=== PATIENT | male | born 1960 | race Caucasian/White ===

== ENCOUNTER 2020-04-18 06:38 | Day surgery (SDC) | payer BC ==
[~2020-04-18] VITALS: Ht 167.6 cm; Wt 150.0 kg
[~2020-04-18 06:38] MED LIST: Aspirin EC81 MG PO; Bactroban22 GM TOP; EPIN.3I IM; Glucosamine Co1 EAC1 PO; HYDMOR2 PO; METF500 PO; METO50ER PO; NON-ASPIRIN 8650 MG PO; OLME20 PO; PRAVASTATIN SOD10 MG PO; VALSARTAN-HCTZ1 EAC3; VITAMIN D35000 UNI1
== END 2020-04-18 08:40 | disposition home or self-care (01) ==
LOC: ORSCSDS 06:38
PROVIDERS: Surgery
PROC: 0DJD8ZZ Inspection of Lower Intestinal Tract, Via Natural or Artificial Opening Endoscopic (ICD-10-PCS; principal; 2020-04-18 08:00)
DX: Z12.11 Encounter for screening for malignant neoplasm of colon (principal); E11.9 Type 2 diabetes mellitus without complications; E78.5 Hyperlipidemia, unspecified; I10 Essential (primary) hypertension; E55.9 Vitamin D deficiency, unspecified; Z79.82 Long term (current) use of aspirin; Z79.84 Long term (current) use of oral hypoglycemic drugs; Z79.899 Other long term (current) drug therapy
CPT/HCPCS: 82947; J0461; J2405; J2704; J7120

== ENCOUNTER 2021-05-05 06:24 | Day surgery (SDC) | payer BC ==
[~2021-05-05] VITALS: Ht 167.6 cm; Wt 85.8 kg
[~2021-05-05 06:24] MED LIST changes: -VITAMIN D35000 UNI1; +VITAMIN D5000 UNIT PO
[2021-05-05] MEDS ORDERED: METFORMIN HCL500 M2 PO (08:46)
[2021-05-05] MEDS ORDERED: GLIP5 PO (08:46)
[2021-05-05] MEDS ORDERED: IRBESARTAN-HCT1 EAC2 PO (08:46)
[2021-05-05] MEDS ORDERED: ATORVASTATIN CA20 MG PO (08:47)
[2021-05-05] MEDS ORDERED: FOLI1 PO (08:48)
--- NOTE | 2021-05-05 09:18 | NUR ---
05/05/21 0918 Nabila Srinivasan ALCOHOL AND HYDROGEN PEROXIDE WIPES DONE BY SURGEON. 2 CHLORAPREP STICKS USED FOR PREP.
--- NOTE | 2021-05-05 12:28 | NUR ---
05/05/[address] DR[address] PERKINS @ BEDSIDE TO PERFORM R INTERSCALENE BLOCK, PATIENT TOLERATED WELL, WILL CONTINUE TO MONITOR. TIME OUT PERFORMED, PROCEDURAL TIME 12:18-12:24
== END 2021-05-05 13:31 | disposition home or self-care (01) ==
LOC: ORSCSDS 06:24
PROVIDERS: Orthopaedic Surgery
PROC: 0RRJ00Z Replacement of Right Shoulder Joint with Reverse Ball and Socket Synthetic Substitute, Open Approach (ICD-10-PCS; principal; 2021-05-05 08:30)
DX: M19.011 Primary osteoarthritis, right shoulder (principal); M75.121 Complete rotator cuff tear or rupture of right shoulder, not specified as traumatic; E11.9 Type 2 diabetes mellitus without complications; E78.5 Hyperlipidemia, unspecified; I10 Essential (primary) hypertension; Z79.84 Long term (current) use of oral hypoglycemic drugs; Z79.899 Other long term (current) drug therapy
CPT/HCPCS: 73020; 82947; A9270; C1713; C1776; J0171; J0696; J1100; J2001; J2250; J2270; J2405; J2704; J3010; J3370; J7050; J7120

== ENCOUNTER 2022-02-20 06:05 | Day surgery (SDC) | payer BC ==
[~2022-02-20] VITALS: Ht 167.6 cm; Wt 85.2 kg
[~2022-02-20 06:05] MED LIST changes: +ATORVASTATIN CA20 MG PO; +FOLI1 PO; +GLIP5 PO; +IRBESARTAN-HCT1 EAC2 PO; +METFORMIN HCL500 M2 PO
--- NOTE | 2022-02-20 08:12 | NUR ---
02/20/22 0812 Nabila Srinivasan 15ML OF BUPIVICAINE 0.25% MIXED 1:1 WITH 15ML OF BUPIVICAINE 0.75% TO CREATE BUPIVICAINE 0.5%. 0.15ML OF EPI 1MG/ML ADDED TO THE 30MLS OF BUPIVICAINE 0.5% TO CREATE A LOCAL SOLUTION OF BUPIVICAINE 0.5% WITH EPI 1:200,000.
== END 2022-02-20 11:20 | disposition home or self-care (01) ==
LOC: ORSCSDS 06:05
PROVIDERS: Podiatrist Foot & Ankle Surgery
PROC: 0QBM0ZZ Excision of Left Tarsal, Open Approach (ICD-10-PCS; principal; 2022-02-20 07:30)
PROC: 0L8P0ZZ Division of Left Lower Leg Tendon, Open Approach (ICD-10-PCS; principal; 2022-02-20 07:30)
PROC: 0LQW0ZZ Repair Left Foot Tendon, Open Approach (ICD-10-PCS; principal; 2022-02-20 07:30)
DX: M24.572 Contracture, left ankle (principal); M21.42 Flat foot [pes planus] (acquired), left foot; R60.0 Localized edema; M79.672 Pain in left foot; I10 Essential (primary) hypertension; E11.9 Type 2 diabetes mellitus without complications; Z79.899 Other long term (current) drug therapy; Z79.82 Long term (current) use of aspirin; Z79.84 Long term (current) use of oral hypoglycemic drugs
CPT/HCPCS: 82947; A9270; C1713; C1769; J0690; J1100; J1885; J2250; J2370; J2405; J2704; J3010; J7120

== ENCOUNTER 2023-03-05 08:44 | Day surgery (SDC) | payer BC ==
[~2023-03-05] VITALS: Ht 167.6 cm; Wt 82.2 kg
[2023-03-05] MEDS ORDERED: METO25ER PO (09:13)
[2023-03-05] MEDS ORDERED: SERT25 PO (09:14)
[2023-03-05] MEDS ORDERED: OZEMPIC1 MG/0.72 SQ (09:15)
--- NOTE | 2023-03-05 10:49 | NUR ---
03/05/23 1049 Ely Marshall 20ML OF ROPIVACAINE 0.5% MIXED AND VERIFIED WITH 0.1ML OF EPI (1MG/ML) TO MAKE ROPIVACAINE 0.5% WITH EPI 1:200,000 FOR INJECTION AT THE OPSITE BY DR LAGUNAS.
--- NOTE | 2023-03-05 11:40 | NUR ---
03/05/23 1140 KAREEM SAENZ PT DENIES PAIN AND NAUSEA.
[2023-03-05 12:27] VITALS: BP 123/90
--- NOTE | 2023-03-05 12:38 | NUR ---
03/05/23 Henny8 Makenzie Contreras PT VS STABLE, SEE VS STRIP FOR COMPLETE DETAILS. PT STATES PAIN IS 5/10 DULL ACHE 30 MINUTES POST PAIN MEDICATION, PT STATES DECREASING AND TOLERABLE TO GO HOME. DISCHARGE INSTRUCTIONS GIVEN, ALL QUESTIONED ANSWERED. PT APPEARS EAGER TO GO HOME, WILL BE DRIVEN BY [id number], [facility].
== END 2023-03-05 12:38 | disposition home or self-care (01) ==
LOC: ORSCSDS 08:44
PROVIDERS: Podiatrist Foot & Ankle Surgery
PROC: 01NG0ZZ Release Tibial Nerve, Open Approach (ICD-10-PCS; principal; 2023-03-05 10:30)
DX: G57.52 Tarsal tunnel syndrome, left lower limb (principal); I10 Essential (primary) hypertension; E11.9 Type 2 diabetes mellitus without complications; Z87.891 Personal history of nicotine dependence; E66.9 Obesity, unspecified; Z68.29 Body mass index [BMI] 29.0-29.9, adult; Z79.82 Long term (current) use of aspirin; Z79.84 Long term (current) use of oral hypoglycemic drugs; Z79.899 Other long term (current) drug therapy
CPT/HCPCS: 82947; A9270; J0171; J0690; J1100; J2250; J2405; J2704; J2795; J3010; J7120